=== PATIENT | female | born 1980 | race Caucasian/White ===

== ENCOUNTER 2018-08-09 15:06 | Emergency (ER) | payer BC, OTHER ==
[2018-08-09 16:04] VITALS: BP 131/76
--- NOTE | 2018-08-09 16:22 | ED ---
Upper Extremity Pain - HPI Summary HPI Summary: 38 yr female with right ring finger pain and redness. 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 She has a scratch and some mild redness. No other complaints. Her tetanus shot is up to date. - History of Current Complaint Chief Complaint: UCUpperExtremity Stated Complaint: RIGHT RING FINGER INJURY Time Seen by Provider: 08/09/18 16:05 Hx Last Menstrual Period: 07/13/18 - Allergies/Home Medications Allergies/Adverse Reactions: Allergies Allergy/AdvReac Type Severity Reaction Status Date / Time No Known Allergies Allergy Verified 08/09/18 15:57 PMH/Surg Hx/FS Hx/Imm Hx - Surgical History Surgery Procedure, Year, and Place: ear, back; eyes lasik 2016 Infectious Disease History: No Infectious Disease History: Reports: History Other Infectious Disease Denies: Traveled Outside the [place] in Last 30 Days - Family History Known Family History: Positive: None - Social History Occupation: Employed Full-time Alcohol Use: Rare Substance Use Type: Reports: Prescribed Smoking Status (MU): Former Smoker Review of Systems Constitutional: Negative Positive: Other - pain right ring finger, and redness. Positive: Other - redness All Other Systems Reviewed And Are Negative: Yes Physical Exam Triage Information Reviewed: Yes Vital Signs On Initial Exam: Initial Vitals Temp Pulse Resp BP Pulse Ox 98.9 F 83 16 131/76 100 08/09/18 15:59 08/09/18 15:59 08/09/18 15:59 08/09/18 15:59 08/09/18 15:59 Vital Signs Reviewed: Yes Appearance: Positive: Well-Appearing, No Pain Distress Skin: Positive: Other - erythema right ring finger, and STS. Small abrasion present. Eyes: Positive: Normal, EOMI ENT: Positive: Normal ENT inspection Neck: Positive: Nontender Respiratory/Lung Sounds: Positive: Other - normal effort Cardiovascular: Positive: Pulses are Symmetrical in both Upper and Lower Extremities Abdomen Description: Negative: Distended Musculoskeletal: Positive: Other - right ring finger with STS and mild erythema with small abrasion. She has some tenderness to head of proximal phalynx. Neurological: Positive: Normal, Sensory/Motor Intact, Alert, Oriented to Person Place, Time, CN Intact II-III Psychiatric: Positive: Normal - [place] Coma Scale Best Eye Response: 4 - Spontaneous Best Motor Response: 6 - Obeys Commands Best Verbal Response: 5 - Oriented Coma Scale Total: 15 Diagnostics - Vital Signs Vital Signs Temp Pulse Resp BP Pulse Ox 08/09/18 15:59 98.9 F 83 16 131/76 100 - Laboratory Lab Statement: Any lab studies that have been ordered have been reviewed, and results considered in the medical decision making process. - Radiology right ring finger Radiology Interpretation Completed By: Radiologist - NAD Course/Dx - Course Course Of Treatment: 38 yr old with contusion, abrasions, and cellulitis - Diagnoses Provider Diagnoses: Contusion of right ring finger, Cellulitis Discharge - Sign-Out/Discharge Documenting (check all that apply): Patient Departure All imaging exams completed and their final reports reviewed: Yes - Discharge Plan Condition: Good Disposition: HOME Prescriptions: Cephalexin CAP* [Keflex CAP*] 500 mg PO QID #40 cap Patient Education Materials: Cellulitis (ED), Contusion in Adults (ED) Referrals: SHAHEEN Alvarenga [Primary Care Provider] - 2 Days - Billing Disposition and Condition Condition: GOOD Disposition: Home
== END 2018-08-09 17:26 | disposition home or self-care (01) ==
LOC: UCCORT 15:06
DX: S60.041A Contusion of right ring finger without damage to nail, initial encounter (principal); L03.011 Cellulitis of right finger; W23.0XXA Caught, crushed, jammed, or pinched between moving objects, initial encounter; Y92.9 Unspecified place or not applicable; Y99.0 Civilian activity done for income or pay; Z87.891 Personal history of nicotine dependence
CPT/HCPCS: 73140; 99212; G0463

== ENCOUNTER 2018-10-09 13:36 | Emergency (ER) | payer BC, OTHER ==
[2018-10-09 15:08] VITALS: BP 134/83
[2018-10-09] MEDS ORDERED: Ondansetron ODT TAB* 4 MG PO ONE (15:19)
[2018-10-09] MEDS ORDERED: Acetaminophen TAB* 325 MG PO ONE (15:37)
--- NOTE | 2018-10-09 15:44 | ED ---
Abdominal Pain/Female - HPI Summary HPI Summary: 38 yr old female with the complaint of Nausea and vomiting. Onset on Wednesday while eating dinner. She has had some epigastric and left upper quadrant cramping. No fever. No dizziness. No diarrhea. No URI or respiratory symptoms. She last urinated late this morning. She has not had any urinary symptoms. She states she is not . Her had a vasectomy. She has not had vaginal discharge. Her LMP was September 25. - History of Current Complaint Chief Complaint: UCGI Stated Complaint: VOMITTING,NAUSEA Time Seen by Provider: 10/09/18 15:11 Hx Last Menstrual Period: 09/26/18 Pain Intensity: 8 Allergies/Adverse Reactions: Allergies Allergy/AdvReac Type Severity Reaction Status Date / Time No Known Allergies Allergy Verified 10/09/18 15:01 Home Medications: Home Medications Ondansetron ODT TAB* [Zofran 4 MG Odt TAB*] 4 mg PO ONCE PRN 10/09/18 [History Confirmed 10/09/18] PMH/Surg Hx/FS Hx/Imm Hx - Surgical History Surgery Procedure, Year, and Place: ear, back; eyes lasik 2015 Infectious Disease History: No Infectious Disease History: Reports: History Other Infectious Disease Denies: Traveled Outside the [place] in Last 30 Days - Family History Known Family History: Positive: None - Social History Alcohol Use: Rare Substance Use Type: Reports: Prescribed Smoking Status (MU): Former Smoker Review of Systems Constitutional: Negative Positive: Abdominal Pain, Vomiting, Nausea. Negative: Diarrhea All Other Systems Reviewed And Are Negative: Yes Physical Exam Triage Information Reviewed: Yes Vital Signs On Initial Exam: Initial Vitals Temp Pulse Resp BP Pulse Ox 99.6 F 70 20 134/83 100 10/09/18 15:03 10/09/18 15:03 10/09/18 15:03 10/09/18 15:03 10/09/18 15:03 Vital Signs Reviewed: Yes Appearance: Positive: Well-Appearing, No Pain Distress Skin: Positive: Warm, Skin Color Reflects Adequate Perfusion Head/Face: Positive: Normal Head/Face Inspection Eyes: Positive: EOMI ENT: Negative: Nasal congestion, Nasal drainage Neck: Positive: Nontender Respiratory/Lung Sounds: Positive: Clear to Auscultation, Breath Sounds Present Cardiovascular: Positive: RRR. Negative: Murmur Abdomen Description: Positive: Nontender. Negative: Distended Musculoskeletal: Positive: Strength/ROM Intact Neurological: Positive: Sensory/Motor Intact, Alert, Oriented to Person Place, Time, CN Intact II-III, Normal Gait, Speech Normal Psychiatric: Positive: Normal - [place] Coma Scale Best Eye Response: 4 - Spontaneous Best Motor Response: 6 - Obeys Commands Best Verbal Response: 5 - Oriented Coma Scale Total: 15 Diagnostics - Vital Signs Vital Signs Temp Pulse Resp BP Pulse Ox 10/09/18 15:03 99.6 F 70 20 134/83 100 - Laboratory Lab Statement: Any lab studies that have been ordered have been reviewed, and results considered in the medical decision making process. Abdominal Pain Fem Course/Dx - Course Course Of Treatment: 38 yr old with NV, and abdominal pain. She is being driven to the ER by her now. - Diagnoses Provider Diagnoses: Abdominal pain, left upper quadrant, Nausea & vomiting Discharge - Sign-Out/Discharge Documenting (check all that apply): Patient Departure All imaging exams completed and their final reports reviewed: No Studies - Discharge Plan Condition: Good Disposition: HOME-RECOMMEND TO ED Patient Education Materials: Acute Nausea and Vomiting (ED), Acute Abdominal Pain (ED) Referrals: No Primary Care Phys,NOPCP [Primary Care Provider] - Additional Instructions: You have been offered an ambulance transport to the ER for your abdominal pain, fever, and vomiting. You have declined this and stated that your is driving you to [facility] in [place]. Do not delay going - Billing Disposition and Condition Condition: GOOD Disposition: Home-Recommend to ED
== END 2018-10-09 15:51 | disposition home health service (06) ==
LOC: UCCORT 13:36
DX: R10.12 Left upper quadrant pain (principal); R11.2 Nausea with vomiting, unspecified; Z87.891 Personal history of nicotine dependence
CPT/HCPCS: 99212; A9270-GY; G0463